=== PATIENT | female | born 1950 | race Caucasian/White ===

== ENCOUNTER 2024-02-16 06:34 | Observation (INO) ==
--- NOTE | 2024-01-06 16:15 | PAT Medication Instructions ---
Medication Instructions Date of Service January 06, 2024 Home Medications amlodipine 5 mg tablet (Norvasc) 5 mg PO QAM aspirin 81 mg capsule 81 mg PO QAM clopidogrel 75 mg tablet (Plavix) 75 mg PO QPM famotidine 20 mg tablet (Pepcid) 20 mg PO QAM insulin glargine 100 unit/mL (3 mL) subcutaneous pen (Lantus Solostar U-100 Insulin) 26 - 28 unit subcut UD lisinopril 20 mg tablet 20 mg PO QAM metformin 1,000 mg tablet 1,000 mg PO BID rosuvastatin 20 mg tablet 20 mg PO QAM venlafaxine 150 mg capsule,extended release 24 hr (Effexor XR) 150 mg PO QAM ASK your prescriber and surgeon clopidogrel 75 mg tablet (Plavix) 75 mg PO QPM (will need to hold Plavix/clopidogrel for at least 7 days prior to surgery in order to get spinal anesthesia) DO NOT take the morning of surgery lisinopril 20 mg tablet 20 mg PO QAM metformin 1,000 mg tablet 1,000 mg PO BID Take morning of surgery With a small sip of water, OTHERWISE NOTHING TO EAT OR DRINK AFTER MIDNIGHT: amlodipine 5 mg tablet (Norvasc) 5 mg PO QAM aspirin 81 mg capsule 81 mg PO QAM (unless surgeon directed otherwise) famotidine 20 mg tablet (Pepcid) 20 mg PO QAM rosuvastatin 20 mg tablet 20 mg PO QAM venlafaxine 150 mg capsule,extended release 24 hr (Effexor XR) 150 mg PO QAM Take evening before surgery metformin 1,000 mg tablet 1,000 mg PO BID insulin glargine 100 unit/mL (3 mL) subcutaneous pen (Lantus Solostar U-100 Insulin) 26 - 28 unit subcut UD Insulin Dependent Diabetic Patients * Test your blood sugar the morning of surgery * If Blood Sugar is GREATER THAN 150, take HALF of your regular dose of: insulin glargine 100 unit/mL (3 mL) subcutaneous pen (Lantus Solostar U-100 Insulin) (14 units) * If Blood Sugar is LESS THAN 150, DO NOT TAKE ANY: insulin glargine 100 unit/mL (3 mL) subcutaneous pen (Lantus Solostar U-100 Insulin) Other Notes If you have any questions please call us at [phone] or [phone] or [phone] or [phone]
--- NOTE | 2024-01-11 12:36 | Anesthesiology Consultation ---
Date of Service January 11, 2024 Assessment & Plan (1) Encounter for pre-operative examination: - PCP 01/12/24 surgeon ordered pre-operative evaluation. - unable to void-patient plans to take U[facility] to [facility]. - Outpatient joint assessment: Patient is currently scheduled for inpatient pathway. If re-evaluated and patient/surgeon requests outpatient pathway, patient is not ideal candidate for outpatient joint program from anesthesia standpoint. Chart Review Chart Review: Pending: Refer to Additional Notes / Consult section and Patient seen in Pre Admission Testing Teaching & Discussion Pre-Anesthesia Teaching/Discussion Notes: Instructed NPO after midnight before surgery, except medications with 15 cc of water. Medication instructions provid ed according to the PAT guidelines. History Surgery Operation Date: 02/16/24 08:25 Proposed Procedures p Right Total Knee Replacement - Chester Rollins MD Height/Weight Height: 5 ft 4 in Weight: 80.2 kg Allergies Allergy/AdvReac Type Severity Reaction Status Date / Time clarithromycin [From Biaxin] Allergy Nausea Verified 01/06/24 14:32 Iodinated Contrast Media Allergy could not Verified 01/06/24 14:32 open eyes Medications Home Medications Medication Instructions Recorded Confirmed Last Taken amlodipine 5 mg tablet (Norvasc) 5 mg PO QAM 01/06/24 01/06/24 Unknown aspirin 81 mg capsule 81 mg PO QAM 01/06/24 01/06/24 Unknown clopidogrel 75 mg tablet (Plavix) 75 mg PO QPM 01/06/24 01/06/24 Unknown famotidine 20 mg tablet (Pepcid) 20 mg PO QAM 01/06/24 01/06/24 Unknown insulin glargine 100 unit/mL (3 26 - 28 unit subcut UD 01/06/24 01/06/24 Unknown mL) subcutaneous pen (Lantus Solostar U-100 Insulin) lisinopril 20 mg tablet 20 mg PO QAM 01/06/24 01/06/24 Unknown metformin 1,000 mg tablet 1,000 mg PO BID 01/06/24 01/06/24 Unknown rosuvastatin 20 mg tablet 20 mg PO QAM 01/06/24 01/06/24 Unknown venlafaxine 150 mg 150 mg PO QAM 01/06/24 01/06/24 Unknown capsule,extended release 24 hr (Effexor XR) Past Medical History Medical History (Updated 01/11/24 @ 12:33 by Carli Aldana PA-C) Anxiety and depression Diabetes mellitus, type 2 IDDM GERD (gastroesophageal reflux disease) controlled, stable per pt Hx-TIA (transient ischemic attack) x3, all 3 were "years ago prior to first endarterectomy" Hyperlipidemia Hypertension controlled, stable per pt custodial (current) use of anticoagulants Nausea and vomiting after administration of anesthetic agent denies needing scop patch Patient denies h/o seizures, heart attack, heart failure, blood clots/DVTs or blood transfusions. Exercise / Class Metabolic Activity II 4-5 Yardwork/Stairs/Walk up hill (denies chest discomfort or shortness of breath with one flight of stairs) Past Surgical History Surgical History History of bilateral tubal ligation History of dilatation and curettage History of esophagogastroduodenoscopy (EGD) History of left-sided carotid endarterectomy x2, open procedure years ago, w/ stent placement most recently 11/01/23, [place]; f/u dr. quevedo, vascular in [place] History of right-sided carotid endarterectomy w/ stent placed, "years ago" Hx of colonoscopy Past Anesthesia History No Hx of Anesthesia Complications and No Family Hx of Anesthesia Complications History of PONV No Hx of Motion Sickness and History of PONV (denies needing scop patch) Social History Smoking Status: Never smoker Do You Dip or Chew Tobacco: No Hx Alcohol Use: No Hx Substance Use: No substance use type: does not use Review of Systems Snoring, denies witnessed apneas. Patient denies chest pain, shortness of breath, dyspnea on exertion, fever, chills, cough, wheezing, or palpitations. Physical Exam Vital Signs Vitals BP 173/70 right arm sitting-patient reports this is usual range with white coat- also notes drinking caffeinated beverages today P 70 SP02 99% on RA RESP 18 Physical Patient resting comfortably in chair in no acute distress, alert and oriented, responding appropriately throughout visit Full cervical extension range of motion without pain TMD 3.5 finger breadths Mallampati Score 2 Dentition: intact, denies chipped or loose teeth, caps/crowns, implants or bridges Lungs: normal respiratory effort. Good air movement, clear throughout to auscultation, no adventitious breath sounds Cardiac: regular rate and rhythm, no murmurs noted Carotid arteries: negative bruit bilat Lab Results Anesthesia Preop Results Results Anesthesia Widget: PT 10.6 Seconds (9.0-12.0) 01/11/24 PTT 26 Seconds (21-31) 01/11/24 INR 1.0 (0.9-1.1) 01/11/24 HA1c 6.6 % (4.5-5.6) H 01/11/24 Blood Type A Negative 01/11/24 Antibody Screen NEGATIVE 01/11/24 Testing Laboratory Results 01/06/24 WBC: 7.5 H/H: 12/40 PLATELETS: 311,000 SODIUM: 144 POTASSIUM: 4.0 CHLORIDE: 106 CO2: 27 BUN: 13 CREATININE: 0.6 GLUCOSE: 78 AST: 15 Alk phos: 76 ALT: 10 Electrocardiogram Date: 09/12/23 Sinus bradycardia with sinus arrhythmia, rate 55 bpm Chest X-Ray Date: 01/11/24 No acute process.
--- NOTE | 2024-02-09 11:08 | History & Physical Report ---
Date of Service February 09, 2024 Assessment & Plan (1) DJD (degenerative joint disease) of knee: Plan: Right total knee replacement with patient specific implants patient will be an overnight stay and then home health with [facility] History of Present Illness Chief Complaint: Right knee pain Primary Care Provider: Kary Alamo MD Patient is a 73-year-old female with greater than 5-year history of right knee pain. Her pain is associated with instability decreased range of motion and stiffness. Patient rates her pain as a 7 out of 10. She has tried and failed injections. Radiographs show severe disease with valgus deformity. She is anticipated for right knee replacement surgery. Patient does have a history of mini strokes with previous multiple carotid endarterectomies also diabetes her recent hemoglobin A1c was 6.3. Allergies Allergy/AdvReac Type Severity Reaction Status Date / Time clarithromycin [From Biaxin] Allergy Nausea Verified 01/06/24 14:32 Iodinated Contrast Media Allergy could not Verified 01/06/24 14:32 open eyes Home Medications Medication Instructions Recorded Confirmed Type amlodipine 5 mg tablet (Norvasc) 5 mg PO QAM 01/06/24 01/06/24 History aspirin 81 mg capsule 81 mg PO QAM 01/06/24 01/06/24 History clopidogrel 75 mg tablet (Plavix) 75 mg PO QPM 01/06/24 01/06/24 History famotidine 20 mg tablet (Pepcid) 20 mg PO QAM 01/06/24 01/06/24 History insulin glargine 100 unit/mL (3 26 - 28 unit subcut UD 01/06/24 01/06/24 History mL) subcutaneous pen (Lantus Solostar U-100 Insulin) lisinopril 20 mg tablet 20 mg PO QAM 01/06/24 01/06/24 History metformin 1,000 mg tablet 1,000 mg PO BID 01/06/24 01/06/24 History rosuvastatin 20 mg tablet 20 mg PO QAM 01/06/24 01/06/24 History venlafaxine 150 mg 150 mg PO QAM 01/06/24 01/06/24 History capsule,extended release 24 hr (Effexor XR) Past Med/Surg History Problem List (Updated 02/09/24 @ 11:08 by Chester Rollins MD) DJD (degenerative joint disease) of knee Medical History Nausea and vomiting after administration of anesthetic agent denies needing scop patch Hx-TIA (transient ischemic attack) x3, all 3 were "years ago prior to first endarterectomy" intermediate accountant (current) use of anticoagulants Anxiety and depression GERD (gastroesophageal reflux disease) controlled, stable per pt Diabetes mellitus, type 2 IDDM Hyperlipidemia Hypertension controlled, stable per pt Surgical History History of bilateral tubal ligation History of dilatation and curettage History of esophagogastroduodenoscopy (EGD) Hx of colonoscopy History of right-sided carotid endarterectomy w/ stent placed, "years ago" History of left-sided carotid endarterectomy x2, open procedure years ago, w/ stent placement most recently 11/01/23, [place]; f/u dr. quevedo, vascular in [place] Social History Smoking Status: Never smoker Second Hand Exposure: Yes (hx in the workplace years ago); Do You Dip or Chew Tobacco: No; Tobacco Cessation Education Requested by Patient: No Hx Alcohol Use: No Hx Substance Use: No Preferred Language: Stateless Communication Ability: Effective Taxicab Driver Required: No Beliefs That Will Affect Care: None Current Living Situation: Alone Other Information That Helps Us Care for You: No Feels Safe at Home: Yes Safety Concerns: Feels Safe At This Time Assistive Devices: Glasses Review of Systems Review of Systems: Right knee pain and instability Physical Exam Physical Exam: Weight 82 kg BMI 31 General: Overweight female who appears to be her stated age. HEENT: NCAT, EOMI, PERRLA Neck multiple scars with consistent with previous carotid surgeries questionable faint bruit Heart: Regular rate and rhythm no murmurs Lungs: Breath sounds clear and present in all multani Abdomen: Obese soft nontender bowel sounds are positive Extremities: Right knee shows valgus deformity passive range of motion is 0 to 115 degrees flexion there is 2 mm of lateral laxity positive effusion and pain Neurologic: Vascular: Intact Results & Data Results & Data Vital Signs (Past 12 Hours) Blood pressure 154/82 Pulse 64
[~2024-02-16 06:34] MED LIST: ROPIVACAINE 0.5% 5 MG/ML 30 ML VIAL ONE; carvediloL 3.125 MG TAB PO PRN
--- OUTSIDE RECORDS SUMMARY | 2024-02-16 06:41 | External Medical Summary | Summary of Care ---
Author Name Unknown Organization [facility] Address [address] [place] [address] Phone [phone] Care Team Providers Care Law Firm Partner Name Role Phone Kary Alamo MD Primary Care Provider [phone] Encounter Details Date Type Department Care Team (Latest Contact Info) Description 02/06/2024 11:03 AM EDT - 02/06/2024 11:59 PM EDT Hospital Encounter Radiology, [facility] [address] [place] [address] Arrived Discharge Disposition: Home - Self Care Allergies Active Allergy Reactions Criticality Noted Date Comments Bactrim Nausea/vomiting 11/28/2013 Clarithromycin Abdominal pain,Nausea/vomiting 03/25/2014 Iodinated Contrast Media Edema face/lips/tongue High 11/28/2013 Eye swelling documented as of this encounter (statuses as of 02/07/2024) Medications Medication Sig Dispensed Refills Start Date End Date Status ASPIRIN 81 MG PO TABS Take 1 Tablet by mouth in the morning. Active Insulin Pen Needle (UNIFINE PENTIPS) 31G X 5 MM Use as directed. Active Insulin Pen Needle (NOVOFINE PLUS) 32G X 4 MM Use as directed. Active Zoster Vac Recomb Adjuvanted 50 MCG/0.5ML Intramuscular Suspension Reconstituted (Shingrix)Indication s:Need for vaccination for zoster Inject 0.5 mL into a large muscle now and repeat dose in 60 to 180 days 1 Each 1 03/05/2021 Active Venlafaxine HCl ER 150 MG Oral Capsule Extended Release 24 Hour (Effexor XR)Indications:Depre ssion, major TAKE ONE CAPSULE BY MOUTH ONCE DAILY 90 Capsule 3 09/29/2021 Active Clopidogrel Bisulfate 75 MG Oral Tablet (pLAVix) Take by mouth 1 Tablet in the morning. 90 Tablet 3 10/09/2021 Active Insulin Glargine Solostar 100 UNIT/ML Subcutaneous Solution Pen-injector (Basaglar KwikPen) INJECT 28 UNITS UNDER THE SKIN IN THE MORNING AND 26 UNITS IN THE EVENING 45 mL 03/19/2022 Active Simvastatin 40 MG Oral Tablet (Zocor)Indications:H yperlipidemia TAKE ONE TABLET BY MOUTH ONCE DAILY 90 Tablet 1 07/06/2022 Active Famotidine 20 MG Oral Tablet (Pepcid) TAKE ONE TABLET BY MOUTH ONCE DAILY 30 Tablet 07/07/2022 Active metFORMIN HCl 1000 MG Oral Tablet (Glucophage)Indicati ons:Diabetes (HCC) TAKE 1 TABLET BY MOUTH TWICE DAILY 180 Tablet 07/15/2022 Active Carvedilol 3.125 MG Oral Tablet (Coreg)Indications:H TN, goal to be determined TAKE 1 TABLET BY MOUTH TWICE DAILY 180 Tablet 1 08/11/2022 Active OneTouch Ultra In Vitro Strip (Glucose Blood)Indications:Ty pe 2 diabetes mellitus with hemoglobin A1c goal of 7.0%-8.0% (HCC) TEST BLOOD SUGAR 3 TIMES DAILY 400 Strip 1 10/16/2022 Active BD Pen Needle Short U/F 31G X 8 MM (Insulin Pen Needle) USE DIRECTED BY PHYSICIAN. 100 Each 1 10/16/2022 Active amLODIPine Besylate 2.5 MG Oral Tablet (Norvasc) Take 1 Tablet by mouth in the morning. 04/14/2023 Active Dexcom G6 Budget Officer Device Use as directed with compatible Dexcom G6 sensor & transmitter (Note pt may choose not to fill if can use phone as elementary reading specialist) 06/13/2023 Active Lisinopril 10 MG Oral Tablet (Prinivil) Take 1 Tablet by mouth in the morning. Active Benzonatate 100 MG Oral Capsule (Tessalon Perles)Indications:A cute cough,Viral URI with cough Take 1 Capsule by mouth 3 times a day as needed for Cough. Do not cut, crush, or chew. 50 Capsule 1 08/26/2023 Active Additional Information Patient not taking.Reported on 09/12/2023 documented as of this encounter (statuses as of 02/07/2024) Active Problems Problem Noted Date Diagnosed Date Neurological deficit present 09/12/2023 Post-menopausal 09/01/2020 Bilateral carotid artery stenosis 08/12/2020 Overview: Last Assessment & Plan: I let the patient know the results of her carotid duplex. The measurements on her most current carotid duplex are about the same as previously. We discussed whether we need to intervene on either stenosis. I told her that because redo carotid surgery does carry a higher risk of cranial nerve injury, we usually wait until the stenosis is more severe or until she develops any symptoms. For now, we will continue to monitor her. I will see her back in 3 months and repeat a carotid duplex. Obesity, Class I, BMI 30.0-34.9 (see actual BMI) 08/27/2019 Microalbuminuria due to type 2 diabetes mellitus 02/23/2019 Current mild episode of deshawn r depressive disorder without prior episode 08/07/2018 Hyperlipidemia 08/07/2018 Type 2 diabetes mellitus wit h hemoglobin A1c goal of 7.0%-8.0% 11/28/2013 Overview: ICD-10 update of inactive term GERD (gastroesophageal reflux disease) BENIGN HYPERTENSION documented as of this encounter (statuses as of 02/07/2024) Immunizations Name Administration Dates Next Due COVID-19 mRNA, LNP-s, No Pre serve, 2-Dose Series (Moderna) 03/19/2021 PPD 11/25/2021 Pneumococcal Conjugate Vacc, 13 Valent (Prevnar) 02/23/2019,12/26/2017 Pneumococcal Polysaccharide PPV23 (Pneumovax) Season Influenza, Quad, PF, Adjuvanted, 65+ Yrs, IM (FLUAD) 06/20/2020 Seasonal Influenza, PF, 6 M & above, IM , (FluLaval or Fluzone) 08/07/2018 Seasonal Influenza, Trivalent, Adjuvanted, 65+ y rs 06/16/2021,08/27/2019 TDAP (age 10 and older)(Boostrix) 01/01/2023 TDAP, Age 7 and older, IM (Adacel) 09/12/2012 documented as of this encounter Social History Tobacco Use Types Packs/Day Years Used Date Smoking Tobacco: Never Smokeless Tobacco: Never Alcohol Use Standard Drinks/Week Comments No 0 (1 standard drink = 0.6 oz pur e alcohol) PHQ-2 Answer Date Recorded PHQ-2 Score 0 02/25/2020 Hunger Vital Sign Answer Date Recorded Worried About Running Out of Food in the Last Ye ar Never true 02/25/2020 Ran Out of Food in the Last Year Never true 02/25/2020 Personal Safety Answer Date Recorded Do you feel unsafe or have concerns for your saf ety? No 09/12/2023 Do you have concerns for you r family's safety? (Household - for ages 0-17 years) Not on file 09/12/2023 Utilities Answer Date Recorded Do you have trouble paying y our heating, water, or electric bill? No 09/12/2023 Is your family able to pay t he heat, water, or electric bill? (Household - for ages 0-17 years) Not on file 09/12/2023 Does your family have access to good internet? (Household - for ages 0-17 years) Not on file 09/12/2023 Social Connections Answer Date Recorded How often do you feel lonely or isolated from those around you? (Adult - for ages 18 years and over) Not on file 12/20/2023 Transportation Needs Answer Date Record ed READ ONLY Do you have troubl e getting a ride to medical visits or work? Never True 09/12/2023 Does your family have a hard time getting a ride to doctors visits? (Household - for ages 0-17 years) Not on file 09/12/2023 Has lack of transportation k ept you from medical appointments, meetings, work, or from getting things needed for daily living? Check all that apply. (Adult - for ages 18 years and over) Not on file 09/12/2023 Do you (or your family) have trouble finding or paying for a ride (transportation)? (Household - for ages 0-17 years) Not on file 09/12/2023 Housing Stability Answer Date Recorded Do you currently live in a s helter or have no steady place to sleep at night? (Adult - for ages 18 years and over) Not on file 09/12/2023 READ ONLY Do you think you a re at risk of becoming homeless? No 09/12/2023 Does your family worry about paying for your home or becoming homeless? (Household - for ages 0-17 years) Not on file 0 09/12/2023 Are you homeless or worried that you might be in the future? (Adult - for ages 18 years and over) Not on file Are you (or your family) gabrielle eless or worried that you might be in the future? (Household - for ages 0-17 years) Not on file Food Insecurity Answer Date Recorded Do you need food for this week? No 09/12/2023 Are you able to get enough f ood for your family? (Household - for ages 0-17 years) Not on file 09/12/2023 Does your family need food t his week? (Household - for ages 0-17 years) Not on file 09/12/2023 Do you always have enough fo od for your family? (Household - for ages 0-17 years) Not on file 09/12/2023 Sex and Gender Information Value Date Recorded Sex Assigned at Female 02/25/2020 9:32 AM EDT Gender Identity Female 02/25/2020 9:32 AM EDT Sexual Orientation Straight 02/25/2020 9: 32 AM EDT Job Start Date Occupation Industry Not on file Not on file Not on file documented as of this encounter Functional Status Functional Status Response Date of Assess ment Are you deaf or do you have serious difficulty h earing? No 09/12/2023 Are you blind or do you have serious difficulty seeing, even when wearing glasses? No 09/12/2023 Do you have serious difficul ty walking or climbing stairs? (5 years old or older) No 09/12/2023 Do you have difficulty dress ing or bathing? (5 years old or older) No 09/12/2023 Because of a physical, menta l, or emotional condition, do you have difficulty doing errands alone such as visiting a doctor s office or shopping? (15 years old or older) No 09/12/19 Cognitive Status Response Date of Assessm ent Because of a physical, menta l, or emotional condition, do you have serious difficulty concentrating, remembering, or making decisions? (5 years old or older) No 09/12/2023 documented as of this encounter Plan of Treatment Pending Results Name Type Priority Associated Diagnoses Date /Time MAMMOGRAM SCREENING MARISELA BILATERAL Medical Imaging Routine Screening mammogram for breast cancer 02/06/2024 11:15 AM EDT Scheduled Orders Name Type Priority Associated Diagnoses Orde r Schedule MAMMOGRAM SCREENING MARISELA BILATERAL Medical Imaging Routine Screening mammogram for breast cancer 1 Occurrences starting 01/12/2024 until 02/11/2025 MAMMOGRAM SCREENING MARISELA BILATERAL Medical Imaging Routine Screening mammogram for breast cancer 1 Occurrences starting 02/06/2024 until 02/06/2024 Health Maintenance Due Date Last Done Comments Fecal Occult Blood Test 1997 Sigmoidoscopy 1997 Depression Monitoring 02/24/2021 02/25/2020 Diabetic Foot Exam 09/01/2021 09/01/2020, 0 08/27/2019, 08/07/2018 B-12 03/04/2022 03/04/2021, 03, 08/07/2018 Diabetic Eye Exam 08/14/2022 08/14/2021, , 10/13/2018, Additional history exists Albumin/Creatinine Ratio 10/09/2022 10/09/2021, 08/0 11/2018 COVID-19 Vaccine ( season) 2023 03/19/2021 Mammogram 12/01/2023 11/30/2022, 11/02, 09/05/2020, Additional history exists Influenza Vaccine (FLU shot) (#1) 2024 06/16/2021, 06/16/2021, 06/20/2020, Additional history exists HbA1c 07/14/2024 01/12/2024, 07/0 11/2023, 09/12/2023, Additional history exists GFR 01/11/2025 01/12/2024, 07/0 11/2023, 01/06/2024, Additional history exists Colonoscopy 01/06/2026 01/06/2021, 04/12/2014 Colorectal Cancer Screening 01/06/2026 Cologuard 01/21/2027 01/22/2024 DXA Scan 09/06/2027 09/05/2020 DTaP,Tdap,and Td Vaccines (3 - Td or Tdap) 01/01/2033 01/01/2023, 09/12/2012 Pneumococcal Vaccine: 65+ Years Completed 02/25/2020, 02/23/2019, 12/26/2017 RETIRED - COLONOSCOPY-EVERY 5 YRS AGES 18-100 Discontinued 01/06/2021, 04/12/2014 Zoster Vaccines Completed 06/16/2021, 03/06/2021 HPV (Gardasil) Vaccine Aged Out No lo nger eligible based on patient's age to complete this topic Hepatitis B Vaccine Aged Out No longe r eligible based on patient's age to complete this topic MENINGOCOCCAL (MENACTRA/MENVEO) Aged Out No longer eligible based on patient's age to complete this topic documented as of this encounter Medical Devices Not on filedocumented as of this encounter Visit Diagnoses Diagnosis Screening mammogram for breast cancer documented in this encounter Advance Directives * Full Code (Latest Code Status on File) Date Activated Date Inactivated Comments 09/12/2023 12:52 AM 09/12/2023 4:06 PM This order reflects the patients wishes and were consensually agreed upon. Question Answer Comments Discussion of Advance Directives occurred with: Patient Does the patient have a Living Will? No Does the patient have Health Care Power of Attor jaswinder? No Care Teams Law Firm Partner Relationship Specialty Start Date End Date Kary Alamo MD [address] [place] [id number] PCP - General Family Medicine 02/15/23 documented as of this encounter
--- OUTSIDE RECORDS SUMMARY | 2024-02-16 06:42 | External Medical Summary ---
Author Name Unknown Address Unknown Organization [id number]:LABORATORY [facility] – [place] - [address] [place] [facility] [place] [address] Laboratory Report Ordering Provider Test Date Status JAS TRIPLETT 01/12/2024 12:50:18 Final Observation Date Value Abnormality Reference (Units ) Status Color of Urine by Auto 01/12/2024 12:50:18 Yellow Colorless, Light Yellow, Yellow, Dark Yellow Final Clarity, Urine 01/12/2024 12:50:18 Clear Clear Final Glucose [Mass/volume] in Urine by Automated test strip 01/12/2024 12:50:18 Negative Negative (mg/dL) Final Bilirubin.total [Presence] in Urine by Automated test strip 01/12/2024 12:50:18 Negative Negative Final Ketones [Mass/volume] in Urine by Automated test strip 01/12/2024 12:50:18 Negative Negative (mg/dL) Final Specific gravity, Urine 01/12/2024 12:50:18 1.029 1.003-1.030 Final Hemoglobin [Presence] in Urine by Automated test strip 01/12/2024 12:50:18 Negative Negative Final pH, Urine 01/12/2024 12:50:18 5.5 5.0-7.5 (Units) Final Protein [Mass/volume] in Urine by Automated test strip 01/12/2024 12:50:18 Trace Abnormal Negative (mg/dL) Final Urobilinogen [Mass/volume] in Urine by Automated test strip 01/12/2024 12:50:18 Normal Normal (mg/dL) Final Nitrite [Presence] in Urine by Automated test strip 01/12/2024 12:50:18 Negative Negative Final Leukocyte esterase [Presence] in Urine by Automated test strip 01/12/2024 12:50:18 Small Abnormal Negative Final RBC, Urine 01/12/2024 12:50:18 3-5 Abnormal 0-2 (/HPF) Final WBC, Urine 01/12/2024 12:50:18 6-9 Abnormal 0-2 (/HPF) Final Bacteria [#/area] in Urine sediment by Microscopy high power field 01/12/2024 12:50:18 0-25 0-25 (/HPF) Final CULTURE, URINE - [facility] 01/12/2024 12:50:18 Final Culture not indicated by uri nalysis results\[id number]\ Performing Location LABORATORY [facility] – [place] - [facility] [address] [facility] [address]
--- OUTSIDE RECORDS SUMMARY | 2024-02-16 06:42 | External Medical Summary ---
Author Name Unknown Address Unknown Organization [id number]:LABORATORY [facility] – [place] - [address] [facility] [id number] Laboratory Report Ordering Provider Test Date Status JAS TRIPLETT 01/12/2024 12:50:18 Final Observation Date Value Abnormality Reference (Units ) Status WBC, Total 01/12/2024 12:50:18 8.45 4.00-10.80 (K/uL) Final RBC 01/12/2024 12:50:18 4.72 3.85-5.15 (M/uL) Final Hemoglobin 01/12/2024 12:50:18 12.8 12.0-15.3 (g/dL) Final HCT 01/12/2024 12:50:18 41.8 36.0-45.2 (%) Final MCV 01/12/2024 12:50:18 88.6 81.5-97.5 (fL) Final MCH 01/12/2024 12:50:18 27.1 27.0-34.0 (pg) Final MCHC 01/12/2024 12:50:18 30.6 32.0-36.0 (g/dL) Final RDW 01/12/2024 12:50:18 14.2 11.5-15.5 (%) Final Platelets 01/12/2024 12:50:18 303 140-400 (K/uL) Final MPV 01/12/2024 12:50:18 10.3 6.6-11.1 (fL) Final Nucleated erythrocytes/100 leukocytes [Ratio] in Blood by Automated count 01/12/2024 12:50:18 0 <=0 (/100 WBCs) Final Performing Location LABORATORY [facility] – [place] - [address] [place] [address]
--- OUTSIDE RECORDS SUMMARY | 2024-02-16 06:42 | External Medical Summary | Summary of Care ---
Author Name Unknown Organization [facility] Address [address] [place] [address] Phone [phone] Care Team Providers Care Turnaround Engineer Name Role Phone Kary Alamo MD Primary Care Provider [phone] Reason for Visit * Reason Comments Outpatient Testing Encounter Details Date Type Department Care Team (Late st Contact Info) Description 01/12/2024 12:40 PM EDT Laboratory Laboratory Patient Service [address] [phone] [address] Pre-procedural laboratory examination; Osteoarthritis of right knee Allergies Active Allergy Reactions Criticality Noted Date Comments Bactrim Nausea/vomiting 11/28/2013 Clarithromycin Abdominal pain,Nausea/vomiting 03/25/2014 Iodinated Contrast Media Edema face/lips/tongue High 11/28/2013 Eye swelling documented as of this encounter (statuses as of 01/12/2024) Medications Medication Sig Dispensed Refills Start Date [...] Glargine Solostar 100 UNIT/ML Subcutaneous Solution Pen-injector (Tetra Techaglar KwikPen) INJECT 28 UNITS UNDER THE SKIN [...] in the morning. 04/14/2023 Active Dexcom G6 Facilities Locator Device Use as directed with compatible Dexcom G6 sensor & transmitter (Note pt may choose not to fill if can use phone as ink technician) 06/13/2023 Active Lisinopril 10 MG Oral Tablet [...] as of this encounter (statuses as of 01/12/2024) Active Problems Problem Noted Date Diagnosed Date [...] as of this encounter (statuses as of 01/12/2024) Immunizations Name Administration Dates Next Due COVID-19 [...] Name Type Priority Associated Diagnoses Date /Time CBC WITH WBC DIFFERENTIAL Lab Routine Pre-procedural laboratory examination Osteoarthritis of right knee 01/12/2024 12:50 PM EDT PT INR Lab Routine Pre-procedural laboratory examination Osteoarthritis of right knee 01/12/2024 12:50 PM EDT URINALYSIS, REFLEX TO CULTURE (NOT FOR NEUTROPENIC PATIENTS) Lab Routine Pre-procedural laboratory examination Osteoarthritis of right knee 01/12/2024 12:50 PM EDT HEMOGLOBIN A1C Lab Routine Pre-procedural laboratory examination Osteoarthritis of right knee 01/12/2024 12:50 PM EDT COMPREHENSIVE METABOLIC PANEL Lab STAT Pre-procedural laboratory examination Osteoarthritis of right knee 01/12/2024 12:50 PM EDT CBC Lab Routine Pre-procedural laboratory examination Osteoarthritis of right knee 01/12/2024 12:50 PM EDT DIFFERENTIAL, AUTOMATED Lab Routine Pre-procedural laboratory examination Osteoarthritis of right knee 01/12/2024 12:50 PM EDT URINALYSIS, REFLEX TO CULTURE (CUP ONLY) Lab Routine Pre-procedural laboratory examination Osteoarthritis of right knee 01/12/2024 12:50 PM EDT URINALYSIS, REFLEX TO CULTURE Lab Routine Pre-procedural laboratory examination Osteoarthritis of right knee 01/12/2024 12:50 PM EDT Health Maintenance Due Date Last Done Comments Cologuard 1997 Fecal Occult Blood Test 1997 Sigmoidoscopy 1997 Depression Monitoring 02/24/2021 02/25/2020 Diabetic Foot Exam 09/01/2021 09/01/2020, 0 08/27/2019, 08/07/2018 B-12 03/04/2022 03/04/2021, 03, 08/07/2018 Diabetic Eye Exam 08/14/2022 08/14/2021, , 10/13/2018, Additional history exists Albumin/Creatinine Ratio 10/09/2022 10/09/2021, 08/11/2018 COVID-19 Vaccine ( season) 2023 03/19/2021 Mammogram 12/01/2023 11/30/2022, 11/02, 09/05/2020, Additional history exists Influenza Vaccine (FLU shot) (#1) 2024 06/16/2021, 06/16/2021, 06/20/2020, Additional history exists HbA1c 07/08/2024 01/06/2024, 09/01, 06/10/2023, Additional history exists GFR 01/05/2025 01/06/2024, 070 11/2023, 10/05/2023, Additional history exists Colonoscopy 01/06/2026 01/06/2021, 04/12/2014 Colorectal Cancer Screening 01/06/2026 DXA Scan 09/06/2027 09/05/2020 DTaP,Tdap,and Td Vaccines [...] as of this encounter Visit Diagnoses Diagnosis Pre-procedural laboratory examination Osteoarthritis of right knee Osteoarthrosis, unspecified whether generalized or localized, lower leg documented in this encounter Advance Directives * [...] Power of Attor jaswinder? No Care Teams Turnaround Engineer Relationship Specialty Start Date End Date Kary Alamo MD [address] [place] [id number] PCP - General Family Medicine 02/15/23 documented as of this encounter
--- OUTSIDE RECORDS SUMMARY | 2024-02-16 06:42 | External Medical Summary | Summary of Care ---
Author Name Unknown Organization [facility] Address [address] [place] [address] Phone [phone] Care Team Providers Care Warping Machine Operator Name Role Phone Kary Alamo MD Primary Care Provider [phone] Encounter Details Date Type Department Care Team (Late st Contact Info) Description 01/12/2024 Orders Only Laboratory [facility] Center[address] [phone] Chester Rollins MD [address] [place] [address] [place] [phone] Osteoarthritis of right knee*; Pre-procedural laboratory examination Allergies Active Allergy Reactions Criticality Noted Date [...] in the morning. 04/14/2023 Active Dexcom G6 Underground Miner Device Use as directed with compatible Dexcom G6 sensor & transmitter (Note pt may choose not to fill if can use phone as audit lead) 06/13/2023 Active Lisinopril 10 MG Oral Tablet [...] of right knee 01/12/2024 12:50 PM EDT Scheduled Orders Name Type Priority Associated Diagnoses Orde r Schedule CBC WITH WBC DIFFERENTIAL Lab Routine Pre-procedural laboratory examination Osteoarthritis of right knee Expected: 01/12/2024, Expires: 01/11/2025 PT INR Lab Routine Pre-procedural laboratory examination Osteoarthritis of right knee Expected: 01/12/2024, Expires: 01/11/2025 URINALYSIS, REFLEX TO CULTURE (NOT FOR NEUTROPENIC PATIENTS) Lab Routine Pre-procedural laboratory examination Osteoarthritis of right knee Expected: 01/12/2024, Expires: 01/11/2025 HEMOGLOBIN A1C Lab Routine Pre-procedural laboratory examination Osteoarthritis of right knee Expected: 01/12/2024, Expires: 01/11/2025 COMPREHENSIVE METABOLIC PANEL Lab STAT Pre-procedural laboratory examination Osteoarthritis of right knee Expected: 01/12/2024, Expires: 01/11/2025 Health Maintenance Due Date Last Done Comments Cologuard 1997 Fecal Occult Blood Test 1997 Sigmoidoscopy 1997 Depression Monitoring 02/24/2021 02/25/2020 Diabetic Foot Exam 09/01/2021 09/01/2020, 0 08/27/2019, 08/07/2018 B-12 03/04/2022 03/04/2021, 03/, 08/07/2018 Diabetic Eye Exam 08/14/2022 08/14/2021, , 10/13/2018, Additional history exists Albumin/Creatinine Ratio 10/09/2022 10/09/2021, 08/0 11/2018 COVID-19 Vaccine ( season) 2023 03/19/2021 Mammogram 12/01/2023 11/30/2022, 0511/2021, 09/05/2020, Additional history exists Influenza Vaccine (FLU shot) (#1) 2024 06/16/2021, 06/16/2021, 06/20/2020, Additional history exists HbA1c 07/08/2024 01/06/2024, 03/07/2023, 06/10/2023, Additional history exists GFR 01/05/2025 01/06/2024, 07/0 11/2023, 10/05/2023, Additional history exists Colonoscopy 01/06/2026 [...] as of this encounter Visit Diagnoses Diagnosis Osteoarthritis of right knee- Primary Osteoarthrosis, unspecified whether generalized or localized, lower leg Pre-procedural laboratory examination documented in this encounter Advance Directives * [...] Power of Attor jaswinder? No Care Teams Warping Machine Operator Relationship Specialty Start Date End Date Kary Alamo MD [address] [place] [phone] PCP - General Family Medicine 02/15/23 documented as of this encounter
--- OUTSIDE RECORDS SUMMARY | 2024-02-16 06:42 | External Medical Summary ---
Author Name Unknown Address Unknown Organization [id number]:[place] [facility] [place] [address] [facility] [address] Laboratory Report Ordering Provider Test Date Status JAS TRIPLETT 01/12/2024 12:50:18 Final Observation Date Value Abnormality Reference (Units ) Status HbA1C 01/12/2024 12:50:18 6.6 Above high normal 4. 0-5.6 (%) Final The use of HbA1c to monitor glycemic status is based on normal hemoglobin and HbA composition. This test should not be used in patients with abnormal hemoglobin that affects the half life of the red blood cell or the in vivo glycation rates. Glucose, estimated average 01/12/2024 12:50:18 143 Above high normal <126 (mg/dL) Niko martinez Performing Location [facility] [place] [address] [facility] [address]
--- OUTSIDE RECORDS SUMMARY | 2024-02-16 06:42 | External Medical Summary | Summary of Care ---
Author Name Unknown Organization [facility] Address [address] [place] [address] Phone [phone] Care Team Providers Care Steel Tester Name Role Phone Kary Alamo MD Primary Care Provider [phone] Reason for Visit * Reason Comments Outpatient Testing Encounter Details Date Type Department Care Team (Late st Contact Info) Description 01/12/2024 12:40 PM EDT Laboratory Laboratory Patient Service [address] [phone] [address] Pre-procedural laboratory examination; Osteoarthritis of right knee [...] Glargine Solostar 100 UNIT/ML Subcutaneous Solution Pen-injector ([employer] Corporation[employer]lar KwikPen) INJECT 28 UNITS UNDER THE SKIN [...] in the morning. 04/14/2023 Active Dexcom G6 Multiple Punch Press Operator Device Use as directed with compatible Dexcom G6 sensor & transmitter (Note pt may choose not to fill if can use phone as insole tacker) 06/13/2023 Active Lisinopril 10 MG Oral Tablet [...] Power of Attor jaswinder? No Care Teams Steel Tester Relationship Specialty Start Date End Date Kary Alamo MD [address] [place] [phone] PCP - General Family Medicine 02/15/23 documented as of this encounter
--- OUTSIDE RECORDS SUMMARY | 2024-02-16 06:42 | External Medical Summary ---
Author Name Unknown Address Unknown Organization [id number][place] [facility] [place] [address] [address] Laboratory Report Ordering Provider Test Date Status JAS TRIPLETT 01/12/2024 12:50:18 Final Warfarin Therapy
INR: 2 .0-3.0 conventional anticoagulation
INR: 2.5- 3.5 high intensity anticoagulation Observation Date Value Abnormality Reference (Units ) Status PT 01/12/2024 12:50:18 12.7 11.6-15.2 (seconds) Final INR 01/12/2024 12:50:18 1.0 0.8-1.2 Final Performing Location [place] [facility] [place] [address] [address]
[2024-02-16] MEDS: LR 60ML/HR IV SCH (07:02)
[2024-02-16] MEDS: FAMOTIDINE 20 MG TAB PO SCH (07:27)
[2024-02-16] MEDS ORDERED: HYDROmorphone INJ 1 MG/ML SYRINGE IV PRN (07:37)
[2024-02-16] MEDS ORDERED: ONDANSETRON INJ 2 MG/ML 2 ML VIAL IV PRN ×2 (07:37→11:34)
[2024-02-16] MEDS ORDERED: KETOROLAC 30 MG/ML VIAL IV PRN (07:37)
[2024-02-16] MEDS ORDERED: ATROPINE SULFATE 0.1 MG/ML 10ML SYR IV PRN (07:37)
[2024-02-16] MEDS: GABAPENTIN 300 MG CAP PO SCH (07:38)
[2024-02-16] MEDS: ACETAMINOPHEN 500 MG TAB PO SCH ×2 (07:38→14:31)
[2024-02-16] MEDS: CeleBREX 200 MG CAP PO SCH ×2 (07:38→21:12)
[2024-02-16] MEDS: traMADol HCL 50 MG TABLET PO SCH (07:38)
[2024-02-16] MEDS: METOCLOPRAMIDE HCL 10 MG TABLET PO SCH (07:38)
[2024-02-16] MEDS ORDERED: PROMETHAZINE HCL 6.25 MG in SODIUM CHLORIDE 0.9% 50 ML IV PRN (07:38)
[2024-02-16] MEDS: LR 500ML BOLUS, THEN 15ML/HR IV SCH (07:50)
[2024-02-16] MEDS: DEXTROSE 5% 500 ML IV SCH (07:51)
[2024-02-16] MEDS ORDERED: MIDAZOLAM HCL 1 MG/ML 2ML VIAL ONE (07:58)
[2024-02-16] MEDS ORDERED: fentaNYL citrate PF 100 MCG/2 ML VIAL ONE ×2 (08:26→10:06)
--- NOTE | 2024-02-16 08:35 | History & Physical Bridge Note ---
Date of Service February 16, 2024 History & Physical Bridge Note I have examined the patient, reviewed the History & Physical and in the interval since the performance of the History & Physical I have noted the following changes of clinical significance: no changes noted
[2024-02-16] MEDS: TRANEXAMIC ACID 1,000 MG **IV Pre-op IV SCH (08:40)
[2024-02-16] MEDS: ceFAZolin 2000MG 2,000 MG/15 ML SYR IV SCH ×2 (09:03→17:33)
[2024-02-16] MEDS ORDERED: GLYCOPYRROLATE 0.2 MG/ML VIAL ONE ×2 (09:18→09:57)
[2024-02-16] MEDS ORDERED: ROCURONIUM BROMIDE 10 MG/ML 5 ML VIAL IV ONE (09:18)
[2024-02-16] MEDS ORDERED: LIDOCAINE 2% 2 ML VIAL/AMP(20MG/ML) INFIL ONE (09:18)
[2024-02-16] MEDS ORDERED: PROPOFOL IV EMULSION 10 MG/ML 20 ML VIAL IV ONE ×2 (09:18→09:32)
[2024-02-16] MEDS ORDERED: ONDANSETRON INJ 2 MG/ML 2 ML VIAL ONE (09:18)
[2024-02-16] MEDS ORDERED: DEXAMETHASONE SOD INJ 4 MG/ML VIAL ONE (09:24)
[2024-02-16] MEDS ORDERED: ePHEDrine sulfate 50 MG/ML AMP ONE (09:50)
[2024-02-16] MEDS ORDERED: KETOROLAC 30 MG/ML VIAL ONE (09:52)
[2024-02-16] MEDS ORDERED: NEOSTIGMINE METHYLSULFATE 1 MG/ML 10ML VIAL ONE (09:57)
[2024-02-16] MEDS ORDERED: LABETALOL HCL IV 5 MG/ML 20ML IV ONE (10:02)
[2024-02-16] MEDS: ORTHO JOINT ANESTHETIC ONE (10:02)
[2024-02-16] MEDS: TRANEXAMIC ACID 1,000 MG **IV Intra-op IV SCH (10:03)
[2024-02-16] MEDS: ROPIV 0.5% 246mg, Ketorolac 30mg, EPINEPHrine 0.5mg in NSS INFIL SCH (10:16)
--- NOTE | 2024-02-16 10:31 | Post Operative Brief Note ---
Immediate Post Op Note Date of Surgery February 16, 2024 Pre & Post Diagnosis Operation Date: 02/16/24 08:55 Pre-Op Diagnosis: Right Knee Degenerative Joint Disease Post-Op Diagnosis: Right Knee Degenerative Joint Disease I identified the patient and participated in the time-out.: Yes Procedure Operation Date: 02/16/24 08:55 Actual Procedures p Right Total Knee Replacement(Right) - Chester Rollins MD Surgeon Chester Rollins MD Him Analyst None Estimated Blood Loss 100 Findings Consistent with Post-Op Diagnosis Drains Hemovac Drain
--- NOTE | 2024-02-16 10:40 | Operative Report ---
Post Operative Report Pre & Post Diagnosis Operation Date: 02/16/24 08:55 Pre-Op Diagnosis: Right Knee Degenerative Joint Disease Post-Op Diagnosis: Right Knee Degenerative Joint Disease I identified the patient and participated in the time-out.: Yes Procedure Operation Date: 02/16/24 08:55 Actual Procedures p Right Total Knee Replacement(Right) - Chester Rollins MD Surgeon Chester Rollins MD Automobile Upholstery Trim Installer None Estimated Blood Loss 100 Findings Consistent with Post-Op Diagnosis severe tricompartmental degenerative changes with Specimens exposed bone in multiple compartments and chronically inflamed synovial lining bone and cartilage fragments Complications none Indications components used: Perla [employer] Nephew journey 2 posterior stabilized knee system: Femur size 5 with Oxinium coating, tibia size 4 x 10, patella size 35 oval Description of Procedure following satisfactory general anesthesia due to the patient not stopping her Plavix in time the patient was supine on the operating room table. The right lower extremity was prepared with ChloraPrep and draped sterilely. A surgical timeout was performed. A midline incision was made and deepened through a very thin subcutaneous fat layer. Hemostasis was obtained. A median parapatellar arthrotomy was performed. The knee showed the changes noted above. Attention was first turned to the patella. The patella was freehand cut and sized for a 35 button. This enhanced exposure to the lateral side of the knee and relaxed the extensor mechanism. The cruciate ligaments were excised. The patient matched femoral block was applied. Femoral distal rotation and resection resetting completed. The 4-in-1 block was used to finish preparation of the femur. The meniscal fragments were excised. The patient matched tibial block was applied. Tibial resection was completed. Soft tissue balancing was completed in flexion and extension. A trial reduction with the above-mentioned components was performed. This showed very good tensioning and stability on the collateral ligaments from full extension to more than 120 degrees of flexion and the patella tracked well throughout. The trial components were removed. The capsule was prepared with the orthopedic cocktail. After irrigation and drying the components were cemented using Channing Z be cement cementing the tibia first, femur second, and patella third. When the cemented hardened the knee was checked and showed very similar stability and patellar tracking. Wound was irrigated with 500 cc of experience irrigation. A Hemovac drain was placed. The arthrotomy was closed with interrupted hcmuis-[id number] sutures of 1 Vicryl and a running suture of 0 strata fix. Following irrigation the subcutaneous tissues were closed in the deeper layer with 0 strata fix. The skin was closed with a running subcuticular stitch of 3 oh strata fix. Local anesthetic was followed applied followed by a Prineo and negative pressure wound dressing. A compressive bandage was then applied. The patient was returned to her bed taken to the recovery room having tolerated the procedure in good condition I attest to the content of the Intraoperative Record and any orders documented therein. Any exceptions are noted below.
[2024-02-16] MEDS: dexAMETHasone**PF** 10 MG/ML VIAL IV SCH (11:32)
[2024-02-16] MEDS ORDERED: METOCLOPRAMIDE HCL INJ 5 MG/ML 2 ML VIAL IV PRN (11:34)
[2024-02-16] MEDS ORDERED: bisacodyL 10 MG SUPP PR PRN (11:34)
[2024-02-16] MEDS ORDERED: NALOXONE HCL 0.4 MG/1 ML VIAL/CARP IV PRN (11:34)
[2024-02-16] MEDS ORDERED: MAGNESIUM HYDROXIDE SUSP 30 ML UDC PO PRN (11:34)
--- NOTE | 2024-02-16 12:32 | Anesthesiology Progress Note ---
Date of Service February 16, 2024 Anesthesia Post Procedure Vital Signs Vital Signs: Temp Pulse Pulse Resp BP Pulse Ox O2 Del Method 02/16/24 12:01 36.5 C 51 L 14 150/69 H 95 Nasal Cannula 02/16/24 11:49 Nasal Cannula 02/16/24 11:35 36.8 C 57 L 14 129/59 L 92 Nasal Cannula 02/16/24 11:20 52 L 14 137/60 94 Nasal Cannula 02/16/24 11:10 36.6 C 52 L 12 134/58 L 93 Nasal Cannula 02/16/24 11:00 50 L 14 136/62 98 Oxymask 02/16/24 10:50 52 L 14 124/59 L 94 Oxymask 02/16/24 10:40 48 L 14 114/54 L 95 Oxymask 02/16/24 10:32 36.5 C 52 L 16 118/54 L 96 Oxymask 02/16/24 07:32 197/87 H 02/16/24 07:17 36.5 C 65 20 100 Room Air O2 Flow Rate 02/16/24 12:01 2 02/16/24 11:49 2 02/16/24 11:35 2 02/16/24 11:20 3 02/16/24 11:10 3 02/16/24 11:00 4 02/16/24 10:50 8 02/16/24 10:40 10 02/16/24 10:32 10 02/16/24 07:32 02/16/24 07:17 Pain Intensity Right Knee: Pain Intensity: 8 Transfer of Care Handoff Completed per policy Notes Mental Status: alert / awake / arousable Patient Amnestic to Procedure: Yes Nausea / Vomiting: adequately controlled Pain: adequately controlled Airway Patency, RR, SpO2: stable & adequate BP & HR: stable & adequate Hydration State: stable & adequate Anesthetic Complications: no major complications apparent
[2024-02-16] MEDS ORDERED: PHARMACY GLYCEMIC MGMT CONSULT PRN (12:33)
[2024-02-16] MEDS: SODIUM CHLORIDE 0.9% 1,000 ML IV SCH (12:40)
[2024-02-16] MEDS: LANTUS PER UNIT CHARGE SQ ONE (13:01)
[2024-02-16] MEDS: INSULIN ASPART PER UNIT CHARGE SC SCH (13:18)
[2024-02-16] MEDS: oxyCODONE HCL IR 5 MG TAB (IMMEDIATE RELEASE) PO PRN (13:19)
--- NOTE | 2024-02-16 13:43 | Pharmacy Report ---
Pharmacy Glycemic Short Note 2 - Date of Service February 16, 2024 - Glycemic Short BSG Results (Last 24 hours): 02/16/24 02/16/24 02/16/24 06:59 07:35 08:32 POC Glucose 78 70 71 02/16/24 02/16/24 02/16/24 09:49 10:38 12:02 POC Glucose 127 H 150 H 185 H OUTPATIENT ANTIDIABETIC REGIMEN: * Metformin 1000 mg PO BID * Lantus (Insulin Glargine) SQ 28 units QAM & 26 units QHS A1C: 6.6% (01/11/2024) ASSESSMENT: 02/15 * Patient is recovering post total knee replacement and received 4 mg of dexamethasone IV during the operation. * Patient received 26 units of Lantus on the night of 02/14, but did not receive a dose of Lantus until being given 40 units post operation at 12:00. * Patient was started on corrective Novolog ACHS with Lantus on a sliding scale QHS per below plan. * Oral agents are not recommended for inpatient use d/t drug interactions, changing PO intake, and difficulty titrating for acute hyper/hypoglycemia. ADA recommends re-initiating outpatient oral agents 1-2 days prior to discharge if/when appropriate if they were held on admission. PLAN FOR INPATIENT GLYCEMIC CONTROL: * Hold outpatient oral diabetes medications - plan to resume metformin with dinner tomorrow * Basal insulin * Patient given Lantus 40 units SQ following surgery on 02/16/24 * Lantus 10-20 units SQ QHS per sliding scale * Further dosing in the morning * Bolus insulin * NovoLog per scale ACHS * Goal Range: Low 110 mg/dL - High 140 mg/dL * Correction Factor: 20 mg/dL/unit * Nutritional / Prandial insulin per carb ratio of 1 unit per 7 grams CHO consumed
[2024-02-16 15:57] VITALS: RESP 18
[2024-02-16] MEDS ORDERED: metFORMIN HCL 500 MG TAB PO SCH (17:00)
[2024-02-16] MEDS: SENNA 8.6 MG TAB PO SCH (21:11)
[2024-02-16] MEDS: CLOPIDOGREL BISULFATE 75 MG TAB PO SCH (21:12)
[2024-02-16] MEDS: DOCUSATE SODIUM 100 MG CAP PO SCH (21:12)
[2024-02-16] MEDS: LANTUS PER UNIT CHARGE SC SCH (21:13)
[2024-02-17 05:36] LABS: Hematocrit (blood only) 32.2 % (37.0-47.0); Mean Corpuscular Hemoglobin 26.7 pg (25.0-34.0); Mean Corpuscular Hgb Conc 31.1 g/dL (32.0-36.0); Mean Corpuscular Volume 85.9 fL (80.0-100.0); Mean Platelet Volume 10.1 fL (9.4-12.4); Platelet Count 268 K/uL (130-400); RDW Coefficient of Variation 14.5 % (11.5-14.5); RDW Standard Deviation 45.2 fL (36.4-46.3); Red Blood Count 3.75 M/uL (4.20-5.40); White Blood Count 15.26 K/ul (4.8-10.8)
[2024-02-17 05:57] LABS: BUN Creatinine Ratio 22.8 (10-20); Calcium 9.3 mg/dl (8.6-10.3); Creatinine Clr Calc Pharmacy 66.8 ml/min; Est GFR (African American) 87.3 ml/min; Est GFR (Non-African American) 75.3 ml/min; Potassium 4.1 mmol/L (3.5-5.1)
--- NOTE | 2024-02-17 07:09 | Orthopedic Progress Note ---
Date of Service February 17, 2024 Assessment & Plan (1) DJD (degenerative joint disease) of knee: Plan: Patient is doing well pain is well-controlled. She she should be ready for discharge to home this morning after evaluated and cleared by physical therapy. She will be [facility] by [facility]. Medications and exercise instructions were reviewed. Will leave the drain in place until tomorrow because of increased drainage due to Plavix follow-up will be in the office in 2 weeks time Admission and Anticipated Discharge Date Admission Date: February 16, 2024 Subjective postoperative day #1 right total knee replacement Patient had a good night. She has a little discomfort. She has been out of bed with assistance. Hemovac drain put 300 cc out overnight (patient did not stop her Plavix in a timely fashion) Physical Exam Physical Exam: patient is examined at the bedside. She is awake alert and oriented x 3. Knee dressing is clean dry and intact her thigh and calf are soft and nontender she is neurologically and vascularly intact. Results & Data Vital Signs (Past 12 Hours) Vital Signs Temp Pulse Resp BP Pulse Ox O2 Del Method 02/17/24 03:00 36.7 C 77 18 178/66 H 98 Room Air 02/16/24 23:00 36.4 C L 89 18 133/61 97 Room Air
[2024-02-17 07:46] VITALS: BP 156/68; PULSE 53; TEMP 97.7; O2SAT 99
[2024-02-17] MEDS: ASPIRIN 81 MG ECTAB PO SCH (08:18)
[2024-02-17] MEDS: CHOLECALCIFEROL 125 MCG (5,000 UNITS) TAB PO SCH (08:18)
[2024-02-17] MEDS: FAMOTIDINE 20 MG TAB PO SCH (08:18)
[2024-02-17] MEDS: amLODIPine BESYLATE 5 MG TAB PO SCH (08:18)
[2024-02-17] MEDS: VENLAFAXINE HCL XR 150 MG CAPXR PO SCH (08:19)
[2024-02-17] MEDS: ROSUVASTATIN CALCIUM 20 MG TAB PO SCH (08:19)
[2024-02-17] MEDS: lisinopril 20 MG TAB PO SCH (08:19)
[2024-02-17] MEDS: MULTIVITAMIN TAB PO SCH (08:19)
[2024-02-17] MEDS: LANTUS PER UNIT CHARGE SC SCH (08:31)
--- NOTE | 2024-02-17 10:19 | Pharmacy Report ---
Pharmacy Glycemic Short Note 2 - Date of Service February 17, 2024 - Glycemic Short BSG Results (Last 24 hours): 02/16/24 02/16/24 02/16/24 10:38 12:02 16:35 Glucose POC Glucose 150 H 185 H 196 H 02/16/24 02/16/24 02/17/24 17:26 20:41 05:17 Glucose 98 POC Glucose 194 H 162 H 02/17/24 07:52 Glucose POC Glucose 88 OUTPATIENT ANTIDIABETIC REGIMEN: * Metformin 1000 mg PO BID * Lantus (Insulin Glargine) SQ 28 units QAM & 26 units QHS A1C: 6.6% (01/11/2024) ASSESSMENT: 02/16 * Patient received 70 units total on 02/15 (50 units basal) * Given the discontinuation of steroids in the patient and her BSG being reasonably controlled on 02/15, will change to a regimen based on patient's home dose of insulin (54 units per day) assuming a stress level of 2. Her Lantus dose was adjusted to 15 units SQ BID as per [facility] for a conservative dosing due to the discontinuation of steroids. * Patient's Novolog will be continued with the CF and CR loosened to adhere to new regimen and as steroid effects taper down. Will continue to titrate down as needed. * Will restart patient's home metformin dose with dinner tonight 02/15 * Patient is recovering post total knee replacement and received 4 mg of dexamethasone IV during the operation. * Patient received 26 units of Lantus on the night of 02/14, but did not receive a dose of Lantus until being given 40 units post operation at 12:00. * Patient was started on corrective Novolog ACHS with Lantus on a sliding scale QHS per below plan. * Oral agents are not recommended for inpatient use d/t drug interactions, changing PO intake, and difficulty titrating for acute hyper/hypoglycemia. ADA recommends re-initiating outpatient oral agents 1-2 days prior to discharge if/when appropriate if they were held on admission. PLAN FOR INPATIENT GLYCEMIC CONTROL: * Metformin 1000 mg PO BID * Basal insulin * Lantus 15 units SQ BID * Bolus insulin * NovoLog per scale ACHS * Goal Range: Low 110 mg/dL - High 140 mg/dL * Correction Factor: 25 mg/dL/unit * Nutritional / Prandial insulin per carb ratio of 1 unit per 8 grams CHO consumed
[2024-02-17] MEDS ORDERED: INSULIN ASPART PER UNIT CHARGE SC SCH (11:30)
--- NOTE | 2024-02-24 09:00 | Discharge Summary ---
Date of Service February 24, 2024 Admission HPI Per Admitting Provider Patient is a 73-year-old female with greater than 5-year history of right knee pain. Her pain is associated with instability decreased range of motion and stiffness. Patient rates her pain as a 7 out of 10. She has tried and failed injections. Radiographs show severe disease with valgus deformity. She is anticipated for right knee replacement surgery. Patient does have a history of mini strokes with previous multiple carotid endarterectomies also diabetes her recent hemoglobin A1c was 6.3. Admission Exam Per Admitting Provider Physical Exam: Weight 82 kg BMI 31 General: Overweight female who appears to be her stated age. HEENT: NCAT, EOMI, PERRLA Neck multiple scars with consistent with previous carotid surgeries questionable faint bruit Heart: Regular rate and rhythm no murmurs Lungs: Breath sounds clear and present in all multani Abdomen: Obese soft nontender bowel sounds are positive Extremities: Right knee shows valgus deformity passive range of motion is 0 to 115 degrees flexion there is 2 mm of lateral laxity positive effusion and pain Neurologic: Vascular: Intact Principal Diagnosis Right Knee Osteoarthritis Discharge Data Allergies Allergy/AdvReac Type Severity Reaction Status Date / Time clarithromycin [From Biaxin] Allergy Nausea Verified 02/16/24 06:56 Iodinated Contrast Media Allergy could not Verified 02/16/24 06:56 open eyes Procedures Performed Operation Date: 02/16/24 08:55 Actual Procedures p Right Total Knee Replacement(Right) - Chester Rollins MD Ordered Studies 02/16/24 05:00 US - OR guided needle placemen Routine Hospital Course (1) DJD (degenerative joint disease) of knee: Patient: TERESA AVERY Admit Date: 02/16/24 MR#: [id number] Att Phy: Chester Rollins MD Acct ID: [id number] Madelaine Phy: Kary Alamo MD Date: 1950 Fam Phy: Age: 73 Location: 3E Sex: F Room/Bed: E320-1 cc: ~ *NOTICE TO RECEIVING [employer]/AGENCY This information is strictly Confidential and protected under [place] law. [place] law prohibits you from making any further disclosure of this information unless further disclosure is expressly permitted by the written consent of the person to whom it pertains or is authorized by law. A general authorization for the release of medical or other information is not sufficient for this purpose. Hospital accepts no responsibility if the information is made available to any other person, INCLUDING THE PATIENT. Date of Service February 17, 2024 Assessment & Plan (1) DJD (degenerative joint disease) of knee: Plan: Patient is doing well pain is well-controlled. She she should be ready for discharge to home this morning after evaluated and cleared by physical therapy. She will be followed by [facility]. Medications and exercise instructions were reviewed. Will leave the drain in place until tomorrow because of increased drainage due to Plavix follow-up will be in the office in 2 weeks time Admission and Anticipated Discharge Date Admission Date: February 16, 2024 Subjective postoperative day #1 right total knee replacement Patient had a good night. She has a little discomfort. She has been out of bed with assistance. Hemovac drain put 300 cc out overnight (patient did not stop her Plavix in a timely fashion) Physical Exam Physical Exam: patient is examined at the bedside. She is awake alert and oriented x 3. Knee dressing is clean dry and intact her thigh and calf are soft and nontender she is neurologically and vascularly intact. Results & Data Vital Signs (Past 12 Hours) Vital Signs Temp Pulse Resp BP Pulse Ox O2 Del Method 02/17/24 03:00 36.7 C 77 18 178/66 H 98 Room Air 02/16/24 23:00 36.4 C L 89 18 133/61 97 Room Air Signed By: <Electronically signed by Chester Rollins MD> 02/17/24 0709 Created: 02/17/24 0707 Total Time Total Time Spent Total Time Spent (In Minutes): 5 Discharge Plan Discharge Items Patient Disposition: Home - Home Health Services Reason For Visit: Right Knee Osteoarthritis Discharge Diagnosis: Right knee osteoarthritis Activity: Per Instructions section Non-emergency contact: Surgeon Call non-emergency contact if: you have any medication questions, your pain is not controlled, your temperature is above 101.5, your wound has increased redness and your wound has increased drainage Follow-up/Referrals: [facility] [Outside] (as per surgeon's office) Chester Rollins MD [Surgeon] - ( follow-up with Dr. Rollins or his PA in 2 weeks from the date of your surgery for your first postoperative visit.) Kary Alamo MD [Primary Care Provider] - Diet: Carb Consistent or DM2 Addtl Attending Provider Instructions: DR. GRADY POST-OP INSTRUCTIONS FOR TOTAL KNEE ARTHROPLASTY PLEASE REVIEW PRIOR TO SURGERY Day of Surgery You will be admitted and meet the nursing and anesthesia team. Dr. Rollins will see you and sign your operative side. Anesthesia will place your spinal anesthetic in the pre-op area Your surgery will be performed and last approximately 1 2 hours. Upon waking, you will notice a dressing and ice pack on your knee. If you purchased the [employer] Cold Compression unit, this will be applied to your knee. You will remain in the recovery room for 1 2 hours, then be transferred to your room in the ambulatory surgical area if you are to go home the same day of your surgery or on the orthopedic floor if you will be staying overnight. Most of Dr. Grady total knee patients go home the same day as surgery. This depends on how well you feel. Patients generally seem to feel better in their own home environment, and the risk of exposure to bad bugs is much lower. (Your post-operative medications will be sent to your pharmacy approximately 1-2 days prior to your procedure) Day 1 post-op (if you have an overnight stay in the hospital) You will have bloodwork drawn in the morning Physical therapy will evaluate you in the morning. You will start getting out of bed and ambulating with a walker. They will instruct you on knee motion exercises. Use your cold packs or your cold compression unit as instructed. This will decrease swelling and minimize pain. director of managed services will discuss your discharge plan. Discharge will generally be around 11am Day 1 post-op (all patients) You will be taking Aspirin 81mg twice for 4 weeks to decrease the risk of a blood clot. You will most likely have a drain and KAM (superficial wound VAC) dressing post-operatively covered by an niles wrap dressing. (home nurse will remove niles wrap/drain) This will keep your incision dry as well as aid in early healing. The batteries will wear out and the VAC will lose suction around day 6 7 post-op. At that time, you may turn off the device and disconnect it from your dressing. You may remove your dressing 10 days after surgery if it becomes bothersome and irritating to your skin. If the dressing appears to be saturated, please call our office. Day 2-14 post-op You will have a home nurse visit to assess your status and remove your niles wrap/drain on post-op day 2. You are permitted to shower immediately with the VAC. Do not soak the dressing let the shower flow on your opposite side, and pat dry the plastic. Once the dressing has been removed, you may shower normally with the incision exposed. Do not rub the area simply let soapy water run over the incision and lightly pat dry. Therapy will begin on post-op day 3. Your therapy prescription will be sent to your home therapy company/therapist You should continue doing your home exercises Week 2 post-op and forward You will have your first post-op appointment 2 weeks after surgery which should have been scheduled for you by our office. This appointment will be to check your incision, progression of therapy and pain control. You will continue to use a cane or a walker until you feel safe enough to stop using it. You will have a 6-week post-op appointment which should have been scheduled for you by our office. X-rays will be taken to evaluate the prosthesis. You will continue to advance range of motion. By 3 to 4 months after surgery, you should have almost full range of motion and may resume most activities. You may have some pain around the knee with certain activities this is completely normal. You will be scheduled for a 1-year post-op appointment to assess your outcome (sooner if Dr. Rollins feels it is necessary). Pain: The immediate post-op period after knee replacement surgery can be painful. You should take your pain medicine as you need it, especially prior to physical therapy and bedtime. Your pain WILL get better, and you may transition to a milder pain medicine (with less side effects, such as Tylenol) as soon as possible. It is common to have pain at night that interferes with sleep this can last for several months. Pain medicines can cause nausea and constipation do not take more than you need. You may be prescribed one or more of the following MEDICATIONS: 1. Celebrex this controls inflammation and makes pain medications more effective it will be taken once or twice a day 2. Tylenol a pain medicine that can help to decrease your pain you should take 1000mg three times a day 3. Tramadol a pain medicine that can be taken every 4-6 hours (instead of Oxycodone) as needed to control your pain 4. Oxycodone a VERY strong pain medicine that can be taken every 4- 6 hours (instead of Tramadol) as needed to control your pain. This medication has the most side effects. 5. Aspirin 81mg blood thinning medication to help minimize the risk of development of blood clots unfortunate side effects of pain medicine include nausea and constipation if you experience these issues or have any questions about your post-op medications, call [facility] at for assistance/advice on how to manage these issues Physical therapy is a VERY important part of knee replacement surgery. The office will arrange for a therapist to come to your home to instruct you on exercises. It is very important to practice on your own (or with the assistance of a family member). While in the hospital, you will be shown a series of home exercises you should perform these exercises 3 4 times daily in addition to physical therapy. After the completion of home therapy (approx. 2 weeks), most therapy exercises can be done on your own. You should get up to walk several times a day. Try not to stand longer than 1 hour at a time to minimize swelling. If you develop swelling, you need to elevate your legs/feet at or above the level of your heart. You may progress from walker to cane to ambulating independently as you feel comfortable. Unless it is an emergency, YOU ARE NOT PERMITTED TO HAVE ANY DENTAL CLEANING/WORK UNTIL 3 MONTHS AFTER SURGERY. You will be required to take an antibiotic prior to any dental cleaning or dental work in order to prevent your joint prothesis from getting infected. This medication is a one time per visit dose to be taken one hour prior to appointment. You may call our office for this prescription or your dentist may be willing to prescribe the medication. Remember to contact [facility] at if you develop any signs of infection which include increased swelling, pain, redness, drainage from incision, warmth, fever, chills or severe pain unrelieved by pain medication. If you develop any chest pain or shortness of breath, you should proceed immediately to the closest Emergency Room. It is normal to run a low-grade fever after surgery. If your fever is consistent at 101.0 or higher, you will need to contact the office. Pending Studies at Discharge: No Stand-Alone Forms: [facility], Pain - Opioid Pain Management Medications and DC Order Prescriptions: Continued lisinopril 20 mg Tablet 20 mg PO QAM venlafaxine [Effexor XR] 150 mg Capsule,Extended Release 24hr 150 mg PO QAM clopidogrel [Plavix] 75 mg Tablet 75 mg PO QPM amlodipine [Norvasc] 5 mg Tablet 5 mg PO QAM famotidine [Pepcid] 20 mg Tablet 20 mg PO QAM metformin 1,000 mg Tablet 1,000 mg PO BID rosuvastatin 20 mg Tablet 20 mg PO QAM aspirin 81 mg Capsule 81 mg PO QAM insulin glargine [Lantus Solostar U-100 Insulin] 100 unit/mL (3 mL) Insulin Pen 26 - 28 unit SUBCUT UD Rx Instructions: 28 units QAM and 26 units HS cholecalciferol (vitamin D3) [Vitamin D3] 125 mcg (5,000 unit) Tablet 125 mcg PO DAILY Krames/Other Patient Handouts: DVT Post Op Prevention Admission Data Admit Date/Time: 02/16/24 10:35 Attending Provider: Chester Rollins Admit Provider: Chester Rollins Primary Care Provider: Kary Alamo Other [facility]iders: [facility] Other Interventions: Discharge Summary Assessment (RN) Last Done: 02/17/24 11:22
== END 2024-02-17 12:03 | disposition home health service (06) ==
LOC: ASU 06:34 → INTOOBSV 10:35 → 3E 10:35